=== PATIENT | female | born 1970 | race American Indian/Alaskan Native ===

== ENCOUNTER 2018-09-22 10:12 | Emergency (ER) | payer MEDICARE, MEDICAID ==
[2018-09-22 10:26] VITALS: TEMP 98.2
[2018-09-22 10:41] VITALS: RESP 20; O2SAT 99
--- NOTE | 2018-09-22 11:16 | C.PDOC ---
History Of Present Illness 48 yo female w/PMHx of schizophrenia, admits " off medication for 1 month since moved from [place]". Pt request to see [employer] to determine gender. 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 Pt appears AAO#3, not in any apparent distress. Pt denies any other active physical complaints. Noted high BP on triage, pt denies previous hx of HTN, denies use of any HTN medication, denies headache, dizziness, visual changes, focal deficits, N/V, neck pain, CP, SOB, dyspnea, palpitation, abd. pain, V/D, UTI sx. Ambulatory, denies suicidal or homocidal ideation. Time Seen by Provider: 09/22/18 10:37 Chief Complaint (Nursing): Female Genitourinary History Per: Patient Past Medical History Reviewed: Historical Data, Nursing Documentation, Vital Signs Vital Signs: Last Vital Signs Temp 98.2 F 09/22/18 10:22 Pulse 114 H 09/22/18 10:41 Resp 20 09/22/18 10:41 BP 239/133 H 09/22/18 10:41 Pulse Ox 99 09/22/18 10:41 - Medical History PMH: Schizophrenia Family History: States: Unknown Family Hx - Social History Hx Tobacco Use: No Hx Alcohol Use: No Hx Substance Use: No - Immunization History Hx Tetanus Toxoid Vaccination: Yes Hx Influenza Vaccination: No Hx Pneumococcal Vaccination: No Review Of Systems Except As Marked, All Systems Reviewed And Found Negative. Constitutional: Negative for: Fever, Chills Eyes: Negative for: Vision Change ENT: Negative for: Throat Pain Cardiovascular: Negative for: Chest Pain, Palpitations, Orthopnea, Edema, Light Headedness Respiratory: Negative for: Cough, Shortness of Breath, Wheezing Gastrointestinal: Negative for: Nausea, Vomiting, Abdominal Pain, Diarrhea Genitourinary: Negative for: Dysuria Musculoskeletal: Negative for: Neck Pain, Back Pain Skin: Negative for: Rash Neurological: Negative for: Weakness, Numbness, Altered Mental Status, Headache, Dizziness Physical Exam - Physical Exam Appears: Well, Non-toxic, No Acute Distress Skin: Normal Color, Warm, Dry Head: Atraumatic, Normacephalic Eye(s): bilateral: PERRL, EOMI Nose: No Flaring Oral Mucosa: Moist, No Drooling Throat: No Drooling Neck: Trachea Midline, Supple Cardiovascular: Rhythm Regular (tachy), No Murmur, No JVD, Other ((-) carotid bruits B/L) Respiratory: No Decreased Breath Sounds, No Accessory Muscle Use, No Stridor, No Wheezing Gastrointestinal/Abdominal: Soft, No Tenderness, No Distention, No Guarding Back: No CVA Tenderness Extremity: Normal ROM, No Pedal Edema, No Swelling Neurological/Psych: Oriented x3, Normal Speech, Normal Motor, Normal Sensation, Normal Reflexes ED Course And Treatment - Laboratory Results Result Diagrams: 09/22/18 11:09 09/22/18 11:09 ECG: Interpreted By Me, Viewed By Me (and ED attending) Interpretation Of ECG: SR@96/min, NAD, prolong QT, no acute T wave or ST-T changes O2 Sat by Pulse Oximetry: 99 Pulse Ox Interpretation: Normal - Radiology CXR: Interpreted by Me, Viewed By Me, Read By Radiologist CXR Interpretation: Yes: No Acute Disease Progress Note: Pt was OBS in ED for 2 hrs and remained asymptomatic. case reviewer appeared in ED, pt request discahrge now. results discussed with pt, appears HTN, request further eval/CT head- pt refused now. Pt sts, " I have BP for years, dont take medictaion". Pt refused further eval and request discharge now. Risk of leaving AMA pror to complete evaluation discussed with pt, including sudden , pt understand and accepts risk. Pt appears in full mental capacity to make legal decision. Pt advised return to ED at any time to ED to complete eval. Pt was seen by PES, case discussed with , pt is psych cleared for discharge. Disposition - Disposition Referrals: [facility] [Outside] Disposition: AGAINST MEDICAL ADVICE Disposition Time: 12:28 Condition: STABLE Instructions: High Blood Pressure in Adults Forms: [facility] (Spanish) - Clinical Impression Clinical Impression: Hypertension, Hypertensive urgency
[2018-09-22 11:19] LABS: BASO % 0.6 % (0.0-2.0); EOS # 0.1 K/uL (0.0-0.7); EOS % 1.5 % (0.0-4.0); HEMOGLOBIN 10.2 g/dL (11.0-16.0); LYMPH # 1.7 K/uL (1.0-4.3); LYMPH % 24.3 % (20.0-40.0); MEAN CELL VOLUME 79.5 fL (81.0-99.0); MEAN CORPUSCULAR HEMOGLOBIN 24.9 pg (27.0-31.0); MEAN CORPUSCULAR HGB CONC 31.3 g/dL (33.0-37.0); MONO # 0.8 K/uL (0.0-0.8); MONO % 11.5 % (0.0-10.0); NEUT # 4.4 K/uL (1.8-7.0); NEUT % 62.1 % (50.0-75.0); NRBC % 0.1 % (0.0-2.0); RBC 4.09 Mil/uL (3.80-5.20); RED CELL DISTRIBUTION WIDTH 16.9 % (11.5-14.5)
--- NOTE | 2018-09-22 11:25 | RAD ---
Date of service: 09/22/2018 HISTORY: Chest pain COMPARISON: No prior. TECHNIQUE: Chest PA and lateral FINDINGS: LINES AND TUBES: None. LUNG AND PLEURA: The lungs are well inflated and clear. No pleural effusion or pneumothorax. HEART AND MEDIASTINUM: There is borderline cardiomegaly. No aortic atherosclerotic calcifications present. The hilar and mediastinal contours are within normal limits. SKELETAL STRUCTURES: The bony structures are within normal limits for the patient's age. VISUALIZED UPPER ABDOMEN: Normal. OTHER FINDINGS: None. IMPRESSION: No active pulmonary disease.
[2018-09-22 11:29] LABS: INR 1.3; PROTHROMBIN TIME 13.8 SECONDS (9.7-12.2)
[2018-09-22 11:30] LABS: HCG,QUALITATIVE URINE NEGATIVE (NEGATIVE)
[2018-09-22 11:37] LABS: ALB/GLOB RATIO 1.3 (1.0-2.1); ALBUMIN 4.6 g/dL (3.5-5.0); ALT/SGPT 17 U/L (9-52); AST/SGOT 23 U/L (14-36); BLOOD UREA NITROGEN 13 mg/dL (7-17); CALCIUM 9.2 mg/dl (8.6-10.4); GFR NON-AFRICAN AMERICAN > 60
[2018-09-22 11:41] LABS: SQUAMOUS EPITHIAL 28 /hpf (0-5); URINE BACTERIA RARE (<OCC); URINE BILIRUBIN NEGATIVE (NEGATIVE); URINE BLOOD 1+ (NEGATIVE); URINE CLARITY Hazy (Clear); URINE COLOR Amber (YELLOW); URINE GLUCOSE (UA) NORMAL (Normal); URINE LEUKOCYTE ESTERASE TRACE Leu/uL (Negative); URINE PROTEIN 2+ mg/dL (NEGATIVE); URINE UROBILINOGEN NORMAL mg/dL (0.2-1.0)
[2018-09-22 11:49] LABS: B-TYPE NATRIURETIC PEPTIDE 367 pg/mL (0-450)
[2018-09-22 11:55] LABS: BARBITURATES, UR NEGATIVE (NEGATIVE); BENZODIAZEPINES, UR NEGATIVE (NEGATIVE); OPIATES, UR NEGATIVE (NEGATIVE); PHENCYCLIDINE, UR NEGATIVE (NEGATIVE)
[2018-09-22 11:57] VITALS: PULSE 103
[2018-09-22 12:46] VITALS: BP 170/80
--- NOTE | 2018-09-23 12:43 | CARD ---
APPROVED REPORT Date of service: 09/22/2018 EKG Measurement Heart [id number] <Conclusion> Normal sinus rhythm Prolonged QT Abnormal ECG
== END 2018-09-22 12:45 | disposition left against medical advice (07) ==
LOC: C.ER 10:12
DX: I16.0 Hypertensive urgency (principal); I10 Essential (primary) hypertension; F20.9 Schizophrenia, unspecified
CPT/HCPCS: 71046; 80053; 81001; 83880; 84484; 84703; 85025; 85610; 85730; 93005; 99285; G0480